=== PATIENT | female | born 1970 | race Caucasian/White ===

== ENCOUNTER 2016-05-10 10:59 | Emergency (ER) | payer BC ==
--- NOTE | 2016-05-10 11:15 | UC ---
UC General HPI - HPI Summary HPI Summary: here with daughter who has pinworms currently she has no symptoms but is concerned about prophylactic trreatment denies fever abdmonial pian, rectal itching - History of Current Complaint Stated Complaint: Pin Worms Time Seen by Provider: 05/10/16 11:08 Hx Obtained From: Patient - Allergy/Home Medications Allergies/Adverse Reactions: Allergies Allergy/AdvReac Type Severity Reaction Status Date / Time Promethazine [From Phenergan] Allergy Intermediate Anxiety Verified 05/10/16 11: 17 stadol Allergy See Comment Uncoded 05/10/16 11:17 PMH/Surg Hx/FS Hx/Imm Hx Previously Healthy: Yes Cardiovascular History Of: Reports: Cardiac Disorders - see below (PFO) Neurological History Of: Reports: TIA - Surgical History Surgical History: Yes Surgery Procedure, Year, and Place: LIPOMA SX FROM BACK - Family History Known Family History: Positive: Cardiac Disease - father, Hypertension - father Negative: Diabetes - Social History Occupation: Employed Full-time Lives: With Family Alcohol Use: None Substance Use Type: None, Prescribed Smoking Status (MU): Former Smoker Length of Time of Smoking/Using Tobacco: 1.5 YRS Have You Smoked in the Last Year: Yes When Did the Patient Quit Smoking/Using Tobacco: 3 months Review of Systems Constitutional: Negative Skin: Negative Eyes: Negative ENT: Negative Respiratory: Negative Cardiovascular: Negative Gastrointestinal: Negative Genitourinary: Negative Motor: Negative Neurovascular: Negative Musculoskeletal: Negative Neurological: Negative Psychological: Negative All Other Systems Reviewed And Are Negative: Yes Physical Exam Triage Information Reviewed: Yes Appearance: No Pain Distress, Well-Nourished Eyes: Positive: Conjunctiva Clear ENT: Positive: Normal ENT inspection Neck: Positive: Supple Respiratory: Positive: Lungs clear, Normal breath sounds, No respiratory distress Abdomen Description: Positive: Nontender, No Organomegaly, Soft Bowel Sounds: Positive: Present Musculoskeletal: Positive: No Edema Neurological: Positive: Alert Psychological Exam: Normal Skin Exam: Normal Course/Dx - Course Course Of Treatment: exam completed. will treat for pinworms empirically d/t daughter positive for pinworms - Differential Dx - Multi-Symptom Provider Diagnoses: enterobiasis Discharge - Discharge Plan Condition: Stable Disposition: HOME Prescriptions: Mebendazole [Emverm] 100 mg PO ONCE #2 chw Patient Education Materials: Enterobiasis (ED) Referrals: Poly Peña MD [Primary Care Provider] - Additional Instructions: start medication as directed and repeat in 2 weeks Please review your discharge instructions. If your symptoms do not improve please call your primary care provider or return to urgent care.
[2016-05-10 11:16] VITALS: BP 115/82
== END 2016-05-10 11:25 | disposition home or self-care (01) ==
LOC: UCCORT 10:59
DX: B80 Enterobiasis (principal); Z88.8 Allergy status to other drugs, medicaments and biological substances; Z87.891 Personal history of nicotine dependence
CPT/HCPCS: 99212; G0463

== ENCOUNTER 2017-10-01 17:41 | Emergency (ER) | payer BC ==
[2017-10-01 17:58] VITALS: BP 114/79
--- NOTE | 2017-10-01 18:35 | ED ---
Throat Pain/Nasal Congestion - HPI Summary HPI Summary: 47 yr old female with the complaint of sore throat, onset yesterday, gland in neck hurt, and she is just beginning to get some coughing the past couple of hours. 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 No other complaints. - History of Current Complaint Chief Complaint: UCGeneralIllness Time Seen by Provider: 10/01/17 18:12 - Allergies/Home Medications Allergies/Adverse Reactions: Allergies Allergy/AdvReac Type Severity Reaction Status Date / Time butorphanol [From Stadol] Allergy See Comment Verified 10/01/17 18:01 promethazine [From Phenergan] Allergy See Comment Verified 10/01/17 18:01 Home Medications: Home Medications LORazepam TAB(*) [Ativan 1 MG TAB (*)] 1 - 2 mg PO BEDTIME PRN 10/01/17 [ History Confirmed 10/01/17] PMH/Surg Hx/FS Hx/Imm Hx Musculoskeletal History: Denies: Hx Rheumatoid Arthritis, Hx Osteoporosis Neurological History: Reports: Hx Transient Ischemic Attacks (TIA) - Surgical History Surgery Procedure, Year, and Place: LIPOMA SX FROM BACK Infectious Disease History: No Infectious Disease History: Denies: Hx Clostridium Difficile, Hx Hepatitis, Hx Human Immunodeficiency Virus (HIV), Hx of Known/Suspected MRSA, Hx Shingles, Hx Tuberculosis, Hx Known/ Suspected VRE, Hx Known/Suspected VRSA, History Other Infectious Disease, Traveled Outside the [place] in Last 30 Days - Family History Known Family History: Positive: Cardiac Disease - father, Hypertension - father Negative: Diabetes - Social History Alcohol Use: None Substance Use Type: Reports: None Smoking Status (MU): Former Smoker Length of Time of Smoking/Using Tobacco: 1.5 YRS Have You Smoked in the Last Year: Yes Review of Systems Positive: Sore Throat Positive: Cough All Other Systems Reviewed And Are Negative: Yes Physical Exam Triage Information Reviewed: Yes Vital Signs On Initial Exam: Initial Vitals Temp Pulse Resp BP Pulse Ox 98.2 F 74 14 114/79 99 10/01/17 17:54 10/01/17 17:54 10/01/17 17:54 10/01/17 17:54 10/01/17 17:54 Vital Signs Reviewed: Yes Appearance: Positive: Well-Appearing, No Pain Distress Skin: Positive: Warm, Skin Color Reflects Adequate Perfusion Head/Face: Positive: Normal Head/Face Inspection Eyes: Positive: EOMI ENT: Positive: Pharyngeal erythema Neck: Positive: Nontender, No Lymphadenopathy Respiratory/Lung Sounds: Positive: Clear to Auscultation, Breath Sounds Present Cardiovascular: Positive: RRR. Negative: Murmur Abdomen Description: Positive: Nontender Musculoskeletal: Positive: Strength/ROM Intact Neurological: Positive: Sensory/Motor Intact, Alert, Oriented to Person Place, Time, CN Intact II-III Psychiatric: Positive: Normal - [place] Coma Scale Best Eye Response: 4 - Spontaneous Best Motor Response: 6 - Obeys Commands Best Verbal Response: 5 - Oriented Coma Scale Total: 15 Diagnostics - Vital Signs Vital Signs Temp Pulse Resp BP Pulse Ox 10/01/17 17:54 98.2 F 74 14 114/79 99 - Laboratory Lab Results: Lab Results 10/01/17 Range/Units 18:07 Group A Strep Rapid Negative (Negative) Lab Statement: Any lab studies that have been ordered have been reviewed, and results considered in the medical decision making process. EENT Course/Dx - Course Course Of Treatment: 47 yr old with pharyngitis, neg strep test and some cough. Viral URI. - Diagnoses Provider Diagnoses: Viral URI with cough Discharge - Sign-Out/Discharge Documenting (check all that apply): Discharge/Admit/Transfer - Discharge Plan Condition: Good Disposition: HOME Patient Education Materials: Upper Respiratory Infection (DC) Referrals: Poly Peña MD [Primary Care Provider] - - Billing Disposition and Condition Condition: GOOD Disposition: HOME
== END 2017-10-01 18:45 | disposition home or self-care (01) ==
LOC: UCCORT 17:41
DX: J06.9 Acute upper respiratory infection, unspecified (principal); R05 Cough; Z20.89 Contact with and (suspected) exposure to other communicable diseases; Z88.5 Allergy status to narcotic agent; Z88.8 Allergy status to other drugs, medicaments and biological substances; Z86.73 Personal history of transient ischemic attack (TIA), and cerebral infarction without residual deficits; Z87.891 Personal history of nicotine dependence
CPT/HCPCS: 87651; 99211; G0463